=== PATIENT | female | born 1990 | race Caucasian/White ===

== ENCOUNTER 2020-11-06 07:18 | Emergency (ER) | payer OTHER ==
[~2020-11-06] VITALS: Ht 162.6 cm; Wt 103.7 kg
[2020-11-06 07:21] VITALS: BP 108/72
--- NOTE | 2020-11-06 07:28 | NUR ---
tank charger note: L&D dept called, notified pt is 36 weeks , symtomology reviewed. L&D RN instructs to have pt roomed in ED, L&D RN to assess pt in ED. L&D notified of pt location.
[2020-11-06 08:16] LABS: BASOPHILS % (AUTO) 1 % (0-1); EOSINOPHILS % (AUTO) 2 % (1-7); LYMPHOCYTES % (AUTO) 7 % (22-44); MEAN CORPUSCULAR HEMOGLOBIN 29.8 pg (27.0-34.8); MEAN PLATELET VOLUME 7.8 fL (7.4-10.4); MONOCYTES % (AUTO) 5 % (2-9); NEUTROPHILS % (AUTO) 84 % (42-75); PLATELET COUNT 275 x10^3/uL (130-400); RED BLOOD COUNT 4.16 x10^6/uL (3.82-5.3)
[2020-11-06 08:27] LABS: ALANINE AMINOTRANSFERASE 14 U/L (12-78); ALBUMIN 2.7 g/dL (3.4-5.0); ANION GAP 11 mmol/L (5-15); CALCIUM 8.6 mg/dL (8.5-10.1); CHLORIDE 108 mmol/L (98-107); CREATININE 0.51 mg/dL (0.55-1.02)
[2020-11-06 08:29] LABS: ALKALINE PHOSPHATASE 136 U/L (45-117); BILIRUBIN,TOTAL 0.4 mg/dL (0.2-1.0); TOTAL PROTEIN 7.7 g/dL (6.4-8.2)
--- NOTE | 2020-11-06 08:56 | NUR ---
PT RESTING ON AN E.R. GURNEY WHILE AWAITING AN MD TO RECHECK. RADIOLOGY RESULTS DISCUSSED. I WILL CONTINUE TO MONITOR AND TREAT ORDERED, WELL PRN WHILE AWAITING FURTHER ORDERS.
[2020-11-06] MEDS ORDERED: ALBUTEROL SULFATE 2.5MG/0.5ML ONE (09:29)
[2020-11-06] MEDS ORDERED: ALBUTEROL/IPRATROPIUM 2.5MG/0.5MG, 3 ML NPPB ONE (09:30)
--- NOTE | 2020-11-06 09:35 | NUR ---
INCORRECT MED DOCUMENTED FOR OMNICELL REMOVAL. DUONEB WAS ADMINISTERED, AND NOT JUST ALBUTEROL.
--- NOTE | 2020-11-06 09:36 | NUR ---
PT SELF-ADMINISTERING NUBULIZER AT BEDSIDE.
--- NOTE | 2020-11-06 12:03 | NUR ---
PT AMBULATED AT A STEADY GAIT APPROX 400' WITHOUT DISCOMFORT, DIZZINESS, OR SHORTNESS OF BREATH.
--- NOTE | 2020-11-06 12:50 | NUR ---
PT IS DRESSING, AND PREPARING FOR D/C.
== END 2020-11-06 13:15 | disposition home or self-care (01) ==
LOC: ED 08:28
DX: O99.513 Diseases of the respiratory system complicating pregnancy, third trimester (principal); J45.909 Unspecified asthma, uncomplicated; R06.00 Dyspnea, unspecified; R06.02 Shortness of breath; Z20.822 Contact with and (suspected) exposure to COVID-19; O99.333 Smoking (tobacco) complicating pregnancy, third trimester; Z3A.36 36 weeks gestation of pregnancy
CPT/HCPCS: 36415; 71045; 80053; 83605; 84145; 85025; 85379; 87635; 93005; 94640; 99285; U0003; U0005; 99406

== ENCOUNTER 2020-11-11 14:32 | Outpatient (CLI) | payer OTHER ==
[~2020-11-11] VITALS: Ht 162.6 cm; Wt 105.5 kg
== END 2020-11-11 15:55 | disposition home or self-care (01) ==
LOC: LDOP 14:32
PROVIDERS: ATTEND Obstetrics & Gynecology
DX: O42.913 Preterm premature rupture of membranes, unspecified as to length of time between rupture and onset of labor, third trimester (principal); Z3A.36 36 weeks gestation of pregnancy
CPT/HCPCS: 59025; 87081; 89060; Q0114

== ENCOUNTER 2020-12-01 05:26 | Inpatient (IN) | payer OTHER ==
[~2020-12-01] VITALS: Ht 162.6 cm; Wt 105.9 kg
[2020-12-01] MEDS ORDERED: MISOPROSTOL 200 MCG TABLET ONE (05:35)
[2020-12-01] MEDS ORDERED: LIDOCAINE 1%, 20ML ONE (05:35)
[2020-12-01] MEDS ORDERED: NEWBORN KIT ONE (05:35)
[2020-12-01] MEDS ORDERED: OXYTOCIN 30U/ 0.9% NaCL 500ML 500 ML ONE (05:36)
[2020-12-01] MEDS ORDERED: FENTANYL PF 100 MCG/2ML IVPush PRN (06:00)
[2020-12-01] MEDS ORDERED: OXYTOCIN 30U/ 0.9% NaCL 500ML 500 ML IV PRN (06:00)
[2020-12-01] MEDS ORDERED: D5%-LACTATED RINGERS 1,000 ML IV SCH (06:00)
[2020-12-01] MEDS: LACTATED RINGERS 1,000 ML IV SCH ×4 (06:00→21:30)
[2020-12-01] MEDS ORDERED: TERBUTALINE 1 MG/ML, 1ML SQ PRN (06:00)
[2020-12-01] MEDS ORDERED: MISOPROSTOL 25 MCG TABLET VG PRN (06:00)
[2020-12-01] MEDS ORDERED: METOCLOPRAMIDE 5 MG/ML, 2ML IVPush PRN (06:00)
[2020-12-01] MEDS ORDERED: TERBUTALINE 1 MG/ML, 1ML IVPush PRN (06:00)
[2020-12-01] MEDS ORDERED: OXYTOCIN 30U/ 0.9% NaCL 500ML 500 ML IV ONE (06:00)
[2020-12-01] MEDS ORDERED: SODIUM CITRATE/CITRIC ACID 30 ML UDC PO PRN (06:00)
[2020-12-01] MEDS ORDERED: FENTANYL PF 100 MCG/2ML IV PRN (06:00)
[2020-12-01 06:27] LABS: BASOPHILS % (AUTO) 1 % (0-1); EOSINOPHILS % (AUTO) 1 % (1-7); LYMPHOCYTES % (AUTO) 19 % (22-44); MEAN CORPUSCULAR HEMOGLOBIN 29.2 pg (27.0-34.8); MEAN CORPUSCULAR HGB CONC 33.5 g/dL (32.4-35.8); MEAN PLATELET VOLUME 8.3 fL (7.4-10.4); MONOCYTES % (AUTO) 6 % (2-9); NEUTROPHILS % (AUTO) 73 % (42-75); PLATELET COUNT 238 x10^3/uL (130-400); RED BLOOD COUNT 4.05 x10^6/uL (3.82-5.3); RED CELL DISTRIBUTION WIDTH 15.8 % (9.6-15.2)
[2020-12-01 10:43] VITALS: BP 127/77
[2020-12-01] MEDS ORDERED: FENTANYL/BUPIV./NS/PF 250 ML EPIDCONT ONE (12:52)
[2020-12-01] MEDS ORDERED: BUPIVACAINE 0.25% ONE (12:52)
[2020-12-01] MEDS ORDERED: ONDANSETRON 2MG/ML, 2ML IVPush PRN (13:30)
[2020-12-01] MEDS ORDERED: LACTATED RINGERS 1,000 ML IVBOLUS PRN (13:30)
[2020-12-01] MEDS ORDERED: NALOXONE 0.4 MG/ML, 1ML IVPush PRN (13:30)
[2020-12-01] MEDS ORDERED: EPHEDRINE 50 MG/ML, 1ML IVPush PRN (13:30)
[2020-12-01] MEDS ORDERED: DIPHENHYDRAMINE 50 MG/ML, 1ML IVPush PRN (13:30)
[2020-12-01] MEDS ORDERED: FENTANYL/BUPIV./NS/PF 250 ML EPIDCONT SCH (13:30)
[2020-12-01] MEDS ORDERED: DOCUSATE 100 MG CAPSULE PO PRN (23:30)
[2020-12-01] MEDS ORDERED: MISOPROSTOL 200 MCG TABLET PR PRN (23:30)
[2020-12-01] MEDS ORDERED: OXYcodone/APAP 5/325MG TABLET PO PRN ×2 (23:30)
[2020-12-01] MEDS ORDERED: ONDANSETRON 2MG/ML, 2ML IV PRN (23:30)
[2020-12-01] MEDS: OXYTOCIN 30U/ 0.9% NaCL 500ML 500 ML IV SCH (23:30)
[2020-12-01] MEDS ORDERED: SIMETHICONE 80 MG CHEW TAB PO PRN (23:30)
[2020-12-01] MEDS: IBUPROFEN 600 MG TABLET PO PRN (23:55)
[2020-12-02 01:28] VITALS: BP 116/67
[2020-12-02 05:30] VITALS: BP 102/66
[2020-12-02] MEDS: LACTATED RINGERS 1,000 ML IV SCH ×2 (05:30→13:30)
[2020-12-02 07:34] LABS: BASOPHILS % (AUTO) 0 % (0-1); EOSINOPHILS % (AUTO) 1 % (1-7); LYMPHOCYTES % (AUTO) 10 % (22-44); MEAN CORPUSCULAR HEMOGLOBIN 29.4 pg (27.0-34.8); MEAN CORPUSCULAR HGB CONC 33.6 g/dL (32.4-35.8); MEAN PLATELET VOLUME 8.3 fL (7.4-10.4); MONOCYTES % (AUTO) 5 % (2-9); NEUTROPHILS % (AUTO) 84 % (42-75); PLATELET COUNT 226 x10^3/uL (130-400)
[2020-12-02 08:10] VITALS: BP 100/65
[2020-12-02] MEDS ORDERED: PRENATAL VIT/IRON/FA 1 EACH TABLET PO SCH (09:00)
[2020-12-02] MEDS: OXYTOCIN 30U/ 0.9% NaCL 500ML 500 ML IV SCH (09:30)
[2020-12-02 12:07] VITALS: BP 115/79
[2020-12-02 16:35] VITALS: BP 112/75
[2020-12-02] MEDS: IBUPROFEN 600 MG TABLET PO PRN (18:45)
== END 2020-12-02 19:15 | disposition home or self-care (01) | DRG 807 ==
LOC: LDIP 05:26 → 2NW 12-02 01:12
PROVIDERS: ADMIT Obstetrics & Gynecology; ATTEND Obstetrics & Gynecology
PROC: 10E0XZZ Delivery of Products of Conception, External Approach (ICD-10-PCS; principal; 2020-12-01)
PROC: 3E0P7VZ Introduction of Hormone into Female Reproductive, Via Natural or Artificial Opening (ICD-10-PCS; 2020-12-01)
PROC: 10907ZC Drainage of Amniotic Fluid, Therapeutic from Products of Conception, Via Natural or Artificial Opening (ICD-10-PCS; 2020-12-01)
PROC: 10H07YZ Insertion of Other Device into Products of Conception, Via Natural or Artificial Opening (ICD-10-PCS; 2020-12-01)
PROC: 3E0R3BZ Introduction of Anesthetic Agent into Spinal Canal, Percutaneous Approach (ICD-10-PCS; 2020-12-01)
PROC: 00HU33Z Insertion of Infusion Device into Spinal Canal, Percutaneous Approach (ICD-10-PCS; 2020-12-01)
DX: O69.81X0 Labor and delivery complicated by cord around neck, without compression, not applicable or unspecified (principal); Z37.0 Single live birth; E66.9 Obesity, unspecified; O99.214 Obesity complicating childbirth; O77.0 Labor and delivery complicated by meconium in amniotic fluid; O99.72 Diseases of the skin and subcutaneous tissue complicating childbirth; L02.92 Furuncle, unspecified; Z20.822 Contact with and (suspected) exposure to COVID-19; Z3A.39 39 weeks gestation of pregnancy; Z82.3 Family history of stroke; Z83.3 Family history of diabetes mellitus; Z87.891 Personal history of nicotine dependence; Z90.49 Acquired absence of other specified parts of digestive tract; Z88.0 Allergy status to penicillin
CPT/HCPCS: 36415; 85025; 86592; 86850; 86900; 87635; G0378; J3010; J2590; J7120